=== PATIENT | female | born 1935 | race Caucasian/White ===

== ENCOUNTER → 2017-01-15 | Outpatient (CLI) | payer MEDICARE, BC ==
--- NOTE | 2017-01-19 08:59 | RADIOLOGY REPORT PS360 ---
DIG MAMM-SCREEN PRAVIN W/CAD CAD Screening COMPARISON: Digital mammograms 01/03/2015 and 01/13/2016 INDICATION: There is no personal or family history of breast cancer TECHNIQUE: Standard CC and MLO images were obtained. R2 CAD reviewed. FINDINGS: Prominent heterogenic fiber glandular densities are seen in the central portions of both breasts and the findings are bilateral and symmetrical. There are stable benign-appearing macrocalcifications in each breast. There is no suspicious lesion and there are no suspicious microcalcifications. There is a mole marker right breast. IMPRESSION: Stable exam with no suspicious lesion seen recommend yearly follow-up BI-RADS CATEGORY: 2_Benign RECOMMENDED FOLLOWUP: 12M 12 MONTH FOLLOW-UP (A letter has been sent to the patient regarding results of the study.)
== END ==
LOC: RAD 10:14
DX: Z12.31 Encounter for screening mammogram for malignant neoplasm of breast (principal)
CPT/HCPCS: G0202